=== PATIENT | male | born 1945 | race Caucasian/White ===

== ENCOUNTER 2016-05-26 08:34 | Day surgery (SDC) | payer OTHER ==
[2016-05-24 10:18] VITALS: BMI 25.0
[~2016-05-26] VITALS: Ht 182.9 cm; Wt 84.1 kg
--- NOTE | 2016-05-26 06:17 | History and Physical ---
History & Physical Date of Service May 26, 2016. History & Physical CC: End stage renal disease HPI: Mr. Arias states that he has been on dialysis for a few months now and that he has had to have his PermCath removed and replaced at least twice due to line infection. He also states that he has an indwelling left-sided Infusaport for chemotherapy administration which he is also currently undergoing. He is right handed. He denies any other complaints at this time including headaches, fevers, chills, dizziness, chest pain, shortness of breath, abdominal pain, nausea, vomiting, diarrhea, constipation, dysuria, hematuria, rest pain, claudication, nonhealing wounds or ulcers or other complaints and the ultrasound performed prior to today's appointment demonstrates a usable vein in his right forearm and upper arm cephalic vein. The left arm cephalic vein appears slightly smaller on the ultrasound report. ALLERGIES: No known allergies. HOME MEDICATIONS: Reconciled on the chart and include the following: Amlodipine, aspirin, atorvastatin, Dialyvite, Flexeril, glipizide, levothyroxine , Renvela, testosterone, Zofran. PAST MEDICAL HISTORY: Positive for multiple myeloma; end-stage renal disease, on hemodialysis; hypertension; hypothyroidism; hypercholesterolemia; and diabetes mellitus. PAST SURGICAL HISTORY: Positive for bilateral inguinal hernia repair and removal of pituitary gland. FAMILY HISTORY: Positive for cancer, hypertension in his mother. SOCIAL HISTORY: Positive for past history of tobacco use. The patient does smoke cigarettes and stopped at age 41. He denies alcohol or drug use. REVIEW OF SYSTEMS: Negative for fatigue, fevers, sweats, weight loss, exercise intolerance, abnormal moles or rashes, vision changes or photophobia, ear pain, sinus problems or sore throat, cough, shortness of breath, hemoptysis, wheezing , chest pain, palpitations or syncope. He denies edema, nausea, vomiting, diarrhea, constipation, dysuria, hematuria, muscle weakness, headaches, dizziness, numbness, or seizures. PHYSICAL EXAM: His vital signs today were as follows: Blood pressure 128/72 in the right arm, 134/74 in the left, heart rate of 110, oxygen 96% on room air. Constitutional: In general, patient is a mildly chronically ill- appearing elderly male in no acute distress. He ambulates without assistance and is active, alert and oriented x4 with normal recent and remote memory. Head is normocephalic, atraumatic. Eyes are EOMI. ENMT exam demonstrates no hearing loss, rhinorrhea, or pharyngeal erythema. Neck is supple, nontender with midline trachea without masses or crepitus. Lung exam demonstrates no dyspnea. They are decreased throughout but clear bilaterally. Cardiovascular exam demonstrates nondisplaced apical impulse with a regular rate and rhythm without murmurs, lifts, heaves, thrills, or gallops. Peripheral pulses are full and equal in all extremities unless otherwise noted, specifically they are normal in his carotid, brachial, radial, and femoral pulses. Bilateral lower extremity distal pulses are +1. He has brisk capillary refill and no signs of distal ischemia. The patient demonstrates no bruit in his carotid, abdominal, or femoral area. Abdomen is soft, nontender with normoactive bowel sounds in all 4 quadrants without guarding or rebound. There is no back or CVA tenderness. Musculoskeletal exam demonstrates normal tone and strength for age. Bilateral upper extremities demonstrate no cyanosis, edema, clubbing, varicosities or ulcers. Bilateral lower extremities demonstrate no cyanosis, edema, clubbing, varicosities, or ulcers. Neurologic: The patient has grossly intact cranial nerves and grossly intact sensation. The patient's bilateral forearms do demonstrate a rather large and potentially a usable cephalic vein for dialysis access creation. ASSESSMENT: End-stage renal disease, on hemodialysis. PLAN: Patient is admitted for creation of a left wrist av fistula. I have discussed the risks options and benefits of the procedure with the patient. The patient understands the risks options and benefits and agrees to the procedure.
[~2016-05-26 08:34] MED LIST: AMLO-114 PO; ASPI325T39 PO; ATOR10TA88 PO; CEFAZOLIN 2000 MG/60 ML D5W IV SCH; CYCL10TA6 PO; GLC5 PO; LEVO125T4 PO; MULT-506 PO; ONDA4TAB46 PO; SEVE800T7 PO; SODIUM CHLORIDE 0.9% 1000ML 1,000 ML IV SCH; TEST1KIT IM
[2016-05-26] MEDS ORDERED: LIDOCAINE HCL 2% 2 ML VIAL (20MG/ML) ONE (09:16)
[2016-05-26] MEDS ORDERED: ONDANSETRON INJ 2 MG/ML 2 ML VIAL ONE (09:16)
[2016-05-26] MEDS ORDERED: SODIUM CHLORIDE 0.9% INJ 10 ML VIAL ONE (09:16)
[2016-05-26] MEDS ORDERED: PROPOFOL IV EMULSION 10 MG/ML 20 ML VIAL IV ONE (09:16)
[2016-05-26] MEDS ORDERED: KETAMINE HCL INJ 50 MG/ML 10 ML VIAL ONE (09:17)
[2016-05-26] MEDS ORDERED: FENTANYL CITRATE INJ 50 MCG/1 ML 2 ML VIAL ONE (09:17)
[2016-05-26] MEDS ORDERED: MIDAZOLAM HCL 1 MG/ML 2ML VIAL ONE (09:17)
[2016-05-26 09:39] VITALS: BP 158/73; PULSE 98; TEMP 36.6; O2SAT 95; Ht 182.9 cm; Wt 84.1 kg
[2016-05-26 09:44] LABS: HEMATOCRIT 36.7 % (42-52); MEAN CELL VOLUME 90.6 fL (80-100); MEAN CORPUSCULAR HEMOGLOBIN 29.1 pg (25-34); MEAN PLATELET VOLUME 9.4 fL (7.4-10.4); PLATELET COUNT 276 K/uL (130-400); RED BLOOD COUNT 4.05 M/uL (4.7-6.1)
--- NOTE | 2016-05-26 09:50 | History & Physical Bridge Note ---
H&P Re-Evaluation Bridge Note: I have examined the patient, reviewed the History & Physical and in the interval since the performance of the History & Physical I have noted the following changes of clinical significance: No changes noted
[2016-05-26 09:53] LABS: PARTIAL THROMBOPLASTIN RATIO 0.9
[2016-05-26 09:54] LABS: MEAN CORPUSCULAR HGB CONC 32.2 g/dl (32-36)
[2016-05-26] MEDS ORDERED: LIDOCAINE HCL 1% 20 ML VIAL ONE (09:54)
[2016-05-26] MEDS ORDERED: GELATIN SPONGE 12-7MM ONE (09:54)
[2016-05-26] MEDS ORDERED: BUPIVACAINE/EPINEPHRINE 0.5% MPF 1:200,000 30 ML VIAL ONE (09:54)
[2016-05-26] MEDS ORDERED: HEPARIN SOD (PORCINE) 1000 UNIT/ML 10 ML VIAL ONE (09:54)
[2016-05-26] MEDS ORDERED: THROMBIN 5000 UNITS KIT ONE (09:55)
[2016-05-26 10:10] LABS: BUN/CREATININE RATIO 4.9 (10-20); POTASSIUM 5.7 mmol/L (3.5-5.1)
[2016-05-26] MEDS ORDERED: LACTATED RINGER'S 1000ML 1,000 ML IV PRN (10:16)
[2016-05-26] MEDS ORDERED: ONDANSETRON INJ 2 MG/ML 2 ML VIAL IV PRN (10:30)
[2016-05-26] MEDS ORDERED: FENTANYL CITRATE INJ 50 MCG/1 ML 2 ML VIAL IV PRN (10:30)
--- NOTE | 2016-05-26 11:11 | [facility] Post Operative Brief Note ---
Immediate Operative Summary Operative Date May 26, 2016. Pre-Operative Diagnosis End Stage Renal Disease Post-Operative Diagnosis Same as preoperative. Procedure(s) Performed Left Wrist Arteriovenous Fistula Surgeon Rocket Assembly Operator Surgeon(s) Katie Durham Pa-C Estimated Blood Loss 10ML Findings good thrill Specimens None per surgeon Anesthesia MAC Complication(s) None Disposition Recovery Room / PACU
[2016-05-26] MEDS ORDERED: OXYC-57 PO (11:12)
--- NOTE | 2016-05-26 11:14 | Discharge Instructions ---
Discharge Instructions Visit Reason for Visit: End Stage Renal Disease Discharge Discharge Diagnosis / Problem: End stage renal disease Discharge Goals Goal(s): Therapeutic intervention Activity Recommendations Activity Limitations: per Instructions/Follow-up section Anesthesia . Post Anesthesia Instructions: If you have had General Anesthesia or IV Sedation: * Do not drive today. * Resume driving when surgeon permits. * Do not make important decisions or sign legal documents today. * Call surgeon for: 1. Temperature elevations greater than 101 degrees F. 2. Uncontrollable pain. 3. Excessive bleeding. 4. Persistent nausea and vomiting. 5. Medication intolerance (nausea, vomiting or rash). * For nausea and vomiting use only clear liquids such as: tea, soda, bouillon until nausea subsides, then gradually increase diet as tolerated. * If you have any concerns or questions, call your surgeon's office. If physician is unavailable and it is an emergency, call 911 or go to the nearest emergency room. . Instructions / Follow-Up Instructions / Follow-Up Call [phone] to schedule a follow up appointment if one not already scheduled. ACTIVITY RECOMMENDATIONS: See Above SPECIAL CARE INSTRUCTIONS: Call your doctor if: * Temperature above 101 degrees * Pain not relieved by pain medicine ordered * There is increased drainage or redness from any incision * You have any unanswered questions or concerns. Diet Recommendations Recommended Home Diet: resume previous diet Procedures Procedures Performed: Left Wrist Arteriovenous Fistula Pending Studies Studies pending at discharge: no Medical Emergencies . Who to Call and When: Medical Emergencies: If at any time you feel your situation is an emergency, please call 911 immediately. . Non-Emergent Contact Non-Emergency issues call your: Surgeon . . "Provider Documentation" section prepared by Steve Montoya.
--- NOTE | 2016-05-26 11:39 | OPERATIVE REPORT ---
DATE OF OPERATION: 05/26/2016 PREOPERATIVE DIAGNOSIS: Endstage renal disease. POSTOPERATIVE DIAGNOSIS: Same. PROCEDURE: Creation of left wrist cephalic vein AV fistula. SURGEON: Dr. Montoya. ACTUARIAL ASSISTANT: Katie Durham PA-C. ANESTHETIC: MAC. PROCEDURE INDICATIONS: The patient is a 71-year-old gentleman in end-stage renal disease in need of a fistula. He had a good cephalic vein in the left wrist. He is right handed. We recommended a left wrist AV fistula. He understood the risks, options and benefits and agreed to go ahead with this procedure. OPERATION AND FINDINGS: The patient was taken to the operating room and placed in supine position. After the left arm was prepped and draped in a sterile manner, local anesthetic was administered. A transverse incision was made midway between the cephalic vein and the radial artery. The cephalic vein was followed. It was of good caliber. It was freed up from the surrounding tissue, 2 small side branches were ligated. It was then ligated distally and divided. The radial artery was then identified at that level. It was of good caliber and fairly soft with minimal atherosclerotic changes. The radial artery was then clamped proximally and distally. Longitudinal arteriotomy was then made. Cephalic vein was beveled. It was gently dilated with heparinized saline. An end-to-side anastomosis was then accomplished between the cephalic vein and the radial artery using a 7-0 Prolene suture in the usual vascular fashion. Prior to completing the closure, backbleeding and forward bleeding was allowed to occur and final few sutures were placed and securely tied. Clamps were then removed. Good flow was seen through the fistula. It distended up nicely. There was a good distal flow in the radial artery. At that point, adequate hemostasis was noted. The wound was then closed with running 3-0 Vicryl suture for the subcutaneous layer and a running 4-0 subcuticular Vicryl suture for the skin edges. Dermabond was used for a dressing. The patient left the operating room in satisfactory condition and tolerated the procedure well. Katie Durham assisted due to lack of resident availability. I attest to the content of the Intraoperative Record and any orders documented therein. Any exceptio ns are noted below.
--- NOTE | 2016-05-26 11:43 | Anesthesiology Progress Note ---
Anesthesia Post Op Note Date & Time May 26, 2016 at 11:43 Vital Signs Pain Intensity: 0 Vital Signs Past 12 Hours Date Time Temp Pulse Resp B/P Pulse Ox O2 Delivery O2 Flow Rate FiO2 05/26/16 11:30 86 18 151/82 92 Nasal Cannula 2 05/26/16 11:24 36.6 79 16 144/81 91 Room Air 05/26/16 09:39 36.6 98 18 158/73 95 Room Air Notes Mental Status: alert / awake / arousable, participated in evaluation Pt Amnestic to Procedure: Yes Nausea / Vomiting: adequately controlled Pain: adequately controlled Airway Patency, RR, SpO2: stable & adequate BP & HR: stable & adequate Hydration State: stable & adequate Anesthetic Complications: no major complications apparent Pt doing well. Glucose 67 but pt asymptomatic so will eat/drink in ASU I.
[2016-05-26 11:45] VITALS: PULSE 85
[2016-05-26 12:00] VITALS: BP 130/67; TEMP 37.1; O2SAT 93
[2016-05-26 12:30] VITALS: BP 131/69; O2SAT 93
--- NOTE | 2016-05-26 14:05 | Progress Note ---
Progress Note Date of Service May 26, 2016. Progress Note I assisted Dr Montoya with Endy Arias's Left Wrist Arteriovenous Fistula on , d/t lack of resident availability.
[2016-07-29] MEDS ORDERED: valtassa (11:06)
== END 2016-05-26 13:00 | disposition home or self-care (01) ==
LOC: C.ACU 08:34
PROVIDERS: ATTEND Surgery Vascular Surgery
DX: N18.6 End stage renal disease (principal); I12.0 Hypertensive chronic kidney disease with stage 5 chronic kidney disease or end stage renal disease; E03.9 Hypothyroidism, unspecified; E78.00 Pure hypercholesterolemia, unspecified; E11.9 Type 2 diabetes mellitus without complications; Z99.2 Dependence on renal dialysis

== ENCOUNTER 2017-06-23 10:41 | Day surgery (SDC) | payer OTHER ==
[~2017-06-23] VITALS: Ht 182.9 cm; Wt 84.5 kg
--- NOTE | 2017-06-23 08:54 | History and Physical ---
History & Physical Date of Service Jun 23, 2017. History & Physical CC: End stage renal disease, malfunctioning av fistula HPI: Mr. Arias has a left arm av fistula with high venous pressures. He has had an intervention last year at another institution. He denies any other complaints at this time including headaches, fevers, chills, dizziness, chest pain, shortness of breath, abdominal pain, nausea, vomiting, diarrhea, constipation, dysuria, hematuria, rest pain, claudication, nonhealing wounds or ulcers or other complaints. ALLERGIES: No known allergies. HOME MEDICATIONS: Reconciled on the chart and include the following: Amlodipine, aspirin, atorvastatin, Dialyvite, Flexeril, glipizide, levothyroxine , Renvela, testosterone, Zofran. PAST MEDICAL HISTORY: Positive for multiple myeloma; end-stage renal disease, on hemodialysis; hypertension; hypothyroidism; hypercholesterolemia; and diabetes mellitus. PAST SURGICAL HISTORY: Positive for bilateral inguinal hernia repair and removal of pituitary gland. FAMILY HISTORY: Positive for cancer, hypertension in his mother. SOCIAL HISTORY: Positive for past history of tobacco use. The patient does smoke cigarettes and stopped at age 41. He denies alcohol or drug use. REVIEW OF SYSTEMS: Negative for fatigue, fevers, sweats, weight loss, exercise intolerance, abnormal moles or rashes, vision changes or photophobia, ear pain, sinus problems or sore throat, cough, shortness of breath, hemoptysis, wheezing , chest pain, palpitations or syncope. He denies edema, nausea, vomiting, diarrhea, constipation, dysuria, hematuria, muscle weakness, headaches, dizziness, numbness, or seizures. PHYSICAL EXAM: His vital signs today were as follows: Blood pressure 128/72 in the right arm, 134/74 in the left, heart rate of 110, oxygen 96% on room air. Constitutional: In general, patient is a mildly chronically ill- appearing elderly male in no acute distress. He ambulates without assistance and is active, alert and oriented x4 with normal recent and remote memory. Head is normocephalic, atraumatic. Eyes are EOMI. ENMT exam demonstrates no hearing loss, rhinorrhea, or pharyngeal erythema. Neck is supple, nontender with midline trachea without masses or crepitus. Lung exam demonstrates no dyspnea. They are decreased throughout but clear bilaterally. Cardiovascular exam demonstrates nondisplaced apical impulse with a regular rate and rhythm without murmurs, lifts, heaves, thrills, or gallops. Peripheral pulses are full and equal in all extremities unless otherwise noted, specifically they are normal in his carotid, brachial, radial, and femoral pulses. Bilateral lower extremity distal pulses are +1. He has brisk capillary refill and no signs of distal ischemia. The patient demonstrates no bruit in his carotid, abdominal, or femoral area. Abdomen is soft, nontender with normoactive bowel sounds in all 4 quadrants without guarding or rebound. There is no back or CVA tenderness. Musculoskeletal exam demonstrates normal tone and strength for age. Bilateral upper extremities demonstrate no cyanosis, edema, clubbing, varicosities or ulcers. There is a good thrill in the left wrist av fistula. Bilateral lower extremities demonstrate no cyanosis, edema, clubbing, varicosities, or ulcers. Neurologic: The patient has grossly intact cranial nerves and grossly intact sensation. The patient's bilateral forearms do demonstrate a rather large and potentially a usable cephalic vein for dialysis access creation. ASSESSMENT: End-stage renal disease, on hemodialysis. Malunctioning fistula PLAN: Patient is admitted for a fistulogram with possible intervention. I have discussed the risks options and benefits of the procedure with the patient. The patient understands the risks options and benefits and agrees to the procedure.
[~2017-06-23 10:41] MED LIST changes: +ATOR10TA82 PO; -ATOR10TA88 PO; +CEFAZOLIN 1000MG IV PUSH 7.5 ML IV SCH; -CEFAZOLIN 2000 MG/60 ML D5W IV SCH; +CEFAZOLIN 2000MG IV PUSH 15 ML IV SCH; -CYCL10TA6 PO; +D5W AND 1/4NSS 1000 ML IV SCH; -LEVO125T4 PO; +LEVO125T5 PO; -SODIUM CHLORIDE 0.9% 1000ML 1,000 ML IV SCH; +valtassa
[2017-06-23] MEDS ORDERED: chemotherapy IV (11:15)
[2017-06-23] MEDS ORDERED: LENA10CA3 PO (11:15)
[2017-06-23 11:16] VITALS: BP 114/64; PULSE 101; TEMP 37.1; O2SAT 96; Ht 182.9 cm; Wt 84.5 kg
[2017-06-23] MEDS ORDERED: FENTANYL CITRATE INJ 50 MCG/1 ML 2 ML VIAL ONE (12:45)
[2017-06-23] MEDS ORDERED: MIDAZOLAM HCL 1 MG/ML 2ML VIAL ONE (12:45)
--- NOTE | 2017-06-23 12:52 | Pre Sedation Assessment ---
Pre Sedation Assessment General Date of Sedation: Jun 23, 2017. Vital Signs Past 12 Hours Date Time Temp Pulse Resp B/P (MAP) Pulse Ox O2 Delivery O2 Flow Rate FiO2 06/23/17 11:16 37.1 101 20 114/64 (81) 96 Room Air Review Cardiovascular: regular rate, rhythm Lungs: lungs clear Pre-Sedation Airway Assessment Smoking Status: Former Smoker Hx of Sleep Apnea: No Short Thick Neck: No Thyro-mental Distance: > 3 Finger Breadths Oral Cavity: Dentures Mallampati Classification: Class I ASA Classification: Class III NPO Status Date of Last Intake of Fluids: Jun 22, 2017 Time of Last Intake of Fluids: 1800 Date of Last Intake of Solids: Jun 22, 2017 Time of Last Intake of Solids: 1800 Procedure Planning Contraindications for Sedation: None Current Medications Reviewed: Yes Notes The planned sedation has been discussed with the patient. Informed Consent was obtained. I have identified the patient, determined the appropriateness of sedation and have assessed the patient immediately prior to the procedure. All medicine(s) and interventions are by my order.
[2017-06-23] MEDS ORDERED: LIDOCAINE HCL 1% 20 ML VIAL INJ ONE (13:30)
[2017-06-23] MEDS ORDERED: OPTIRAY 300 IV ONE (13:30)
--- NOTE | 2017-06-23 13:31 | [facility] Post Operative Brief Note ---
Immediate Operative Summary Operative Date Jun 23, 2017. Pre-Operative Diagnosis Malfunctioniing Fistula Post-Operative Diagnosis Normal Fistula Procedure(s) Performed Fistulogram Surgeon Dr. Montoya Uppers Edge Burnisher Surgeon(s) Dr. Montoya Estimated Blood Loss 3 Findings Consistent with Post-Op Diagnosis Specimens None Drains None Anesthesia Type Local Complication(s) none Disposition Accompanied Pt To Recover: no Disposition:
--- NOTE | 2017-06-23 13:33 | Discharge Instructions ---
Discharge Instructions Date of Service Jun 23, 2017. Visit Reason for Visit: End Stage Renal Disease Discharge Discharge Diagnosis / Problem: Malfunctioning left arm fistula, normal fistulogram Discharge Goals Goal(s): Diagnostic testing Activity Recommendations Activity Limitations: resume your previous activity Anesthesia . Post Anesthesia Instructions: If you have had General Anesthesia or IV Sedation: * Do not drive today. * Resume driving when surgeon permits. * Do not make important decisions or sign legal documents today. * Call surgeon for: 1. Temperature elevations greater than 101 degrees F. 2. Uncontrollable pain. 3. Excessive bleeding. 4. Persistent nausea and vomiting. 5. Medication intolerance (nausea, vomiting or rash). * For nausea and vomiting use only clear liquids such as: tea, soda, bouillon until nausea subsides, then gradually increase diet as tolerated. * If you have any concerns or questions, call your surgeon's office. If physician is unavailable and it is an emergency, call 911 or go to the nearest emergency room. . Instructions / Follow-Up Instructions / Follow-Up Call [phone] with any questions or concerns. SPECIAL CARE INSTRUCTIONS: Medications: * Continue to take your medications as directed. If you have been given a prescription for Plavix, please fill it immediately and take as directed. Incision Care: * Your puncture site may have some bruising and minor swelling for about one week. * You will have a small dressing covering your puncture site. You may remove the dressing after 24 hours and shower. You may let the warm soapy water run over it, but be sure to dry the puncture site well and keep it dry. * DO NOT IMMERSE THE INCISION IN A TUB/POOL/etc. UNTIL HEALED. * Puncture sites should be kept covered with a band-aid until it begins to heal. Restrictions: * Depending on whether you leg or arm was punctured to access the arteries, you will be required to lay flat, hold your arm still, or both, for about 4 hours after the procedure to prevent bleeding. * Limit your activity for the first 48 hours. You may walk and go up and down steps. Avoid excessive bending or movement at the puncture site. Possible Complications: * Excessive Swelling - after blood flow is improved you may notice increased swelling in the lower legs. This is a normal response. This usually depends on the amount of blockages in the leg, how long they have been there prior to your procedure and how much blood flow was restored. Elevating your legs will help to improve this. Please notify our office ([phone] ) if the swelling does not go away after lying in bed overnight. * Infection/Drainage/Bleeding - Drainage or bleeding from the puncture site should be minimal. If you have excessive bleeding or drainage, call our office ([phone]) right away. * Pain - You may experience some mild pain or soreness at your puncture site. If your pain does not improve, please contact our office ([phone]). Call your doctor and seek emergent treatment if you develop: * Temperature above 101 degrees * Any fever or chills * Any redness or purulent drainage from the puncture site * Any new dusky/blue colored toes or feet with coolness or sharp or aching pain. SKIN IRRITATION: * You may experience some redness and/or swelling in the area where radiation was administered. If any skin irritation occurs, please contact your family physician. FOLLOW UP VISIT: Keep any scheduled doctor appointments. Diet Recommendations Recommended Home Diet: resume previous diet Procedures Procedures Performed: Fistulogram Pending Studies Studies pending at discharge: no Medical Emergencies . Who to Call and When: Medical Emergencies: If at any time you feel your situation is an emergency, please call 911 immediately. . Non-Emergent Contact Non-Emergency issues call your: Surgeon . . "Provider Documentation" section prepared by Steve Montoya. .
[2017-06-23 13:40] VITALS: BP 114/75; PULSE 88; TEMP 37.1; O2SAT 93
--- NOTE | 2017-06-23 13:48 | DIAGNOSTIC IMAGING REPORT ---
DATE OF PROCEDURE: 06/23/2017 PREOPERATIVE DIAGNOSIS: End-stage renal disease. POSTOPERATIVE DIAGNOSIS: Same. PROCEDURE: Left upper extremity radiocephalic fistulogram. SURGEON: Dr. Steve Montoya. PARK KEEPER: Nu Watson M.D. ANESTHESIA: Local. ESTIMATED BLOOD LOSS: 3. COMPLICATIONS: None apparent. CONDITION: Stable to PACU. INDICATIONS: Mr. Arias is a 72-year-old male with a left radiocephalic fistula who has been having issues with hyperkalemia and concern for recirculation. Therefore, it was recommended to undergo a fistulogram; he agreed to undergo the procedure. DESCRIPTION OF PROCEDURE: The patient was brought to the operative suite. He was prepped and draped in the usual fashion. Timeout occurred. Lidocaine was instilled over the proximal fistula near the arterial anastomosis. This was punctured using micropuncture needle and micropuncture catheter was placed. Fistulogram was obtained of the venous outflow. He had a widely patent radiocephalic fistula, widely patent axillary subclavian and innominate veins and no evidence of stenosis with brisk fill. Retrograde shot showed a widely patent arterial anastomosis. At this point, there was no radiological evidence of any hemodynamically significant stenosis. The procedure was terminated and the sheath was removed and pressure was held until hemostasis was obtained. The patient tolerated the procedure well, was transferred back to the recovery room in stable condition. Dr. Steve Montoya was present for the entirety of this case. [facility]
[2017-06-23 13:55] VITALS: BP 135/76; PULSE 90; O2SAT 94
[2017-06-23 14:10] VITALS: BP 133/68; PULSE 88; TEMP 37.1; O2SAT 95
== END 2017-06-23 14:27 | disposition home or self-care (01) ==
LOC: C.ACU 10:41
PROVIDERS: ATTEND Surgery Vascular Surgery
DX: N18.6 End stage renal disease (principal); Z99.2 Dependence on renal dialysis; I12.0 Hypertensive chronic kidney disease with stage 5 chronic kidney disease or end stage renal disease; E03.9 Hypothyroidism, unspecified; E11.9 Type 2 diabetes mellitus without complications; E78.00 Pure hypercholesterolemia, unspecified; Z79.82 Long term (current) use of aspirin; Z79.899 Other long term (current) drug therapy; Z85.79 Personal history of other malignant neoplasms of lymphoid, hematopoietic and related tissues; F17.200 Nicotine dependence, unspecified, uncomplicated; Z98.890 Other specified postprocedural states; Z80.9 Family history of malignant neoplasm, unspecified; Z82.49 Family history of ischemic heart disease and other diseases of the circulatory system